=== PATIENT | female | born 1975 | race Caucasian/White ===

== ENCOUNTER 2021-09-21 15:15 | Emergency (ER) | payer OTHER ==
[2021-09-21 15:18] VITALS: TEMP 97.9; BMI 25.4
[2021-09-21] MEDS ORDERED: ACETAMINOPHEN 1000 MG/100 ML BAG IVPB ONE (17:19)
[2021-09-21] MEDS ORDERED: LACTATED RINGERS SOLUTION 1000 ML INFUS.BAG IV ONE (17:20)
[2021-09-21] MEDS ORDERED: ACETAMINOPHEN INJECTION 100 ML IVPB ONE (18:17)
[2021-09-21 19:10] LABS: BASO % 0.4 % (0-2.0); EOS % 1.2 % (0-4.5); HEMATOCRIT 38.8 % (32.4-45.2); HEMOGLOBIN 12.8 GM/dL (10.7-15.3); LYMPH % 31.4 % (8-40); MCH 26.1 pg (25.7-33.7); MEAN CELL VOLUME 79.2 fl (80-96); MEAN PLT VOLUME 10.2 fl (7.5-11.1); MONO % 5.6 % (3.8-10.2); NEUT % 61.4 % (42.8-82.8); PLATELET COUNT 189 10^3/uL (134-434); RDW 14.6 % (11.6-15.6); WHITE BLOOD COUNT 7.4 K/mm3 (4.0-10.0)
[2021-09-21 19:34] LABS: INR 1.06 (0.83-1.09); PROTHROMBIN TIME (PATIENT) 12.2 SEC (9.7-13.0)
[2021-09-21 19:36] LABS: ACTIVATED PTT 28.5 SECONDS (25.2-36.5)
[2021-09-21 19:59] LABS: CHLORIDE 106 mmol/L (98-107); SODIUM 140 mmol/L (136-145)
[2021-09-21 20:03] LABS: ALBUMIN 3.5 g/dl (3.4-5.0); ANION GAP 5 MMOL/L (8-16); BLOOD UREA NITROGEN 8.8 mg/dL (7-18); CALCIUM 9.6 mg/dL (8.5-10.1); CO2 28 mmol/L (21-32); GLUCOSE,RANDOM 79 mg/dL (74-106)
[2021-09-21 20:04] LABS: CREATININE 0.8 mg/dL (0.55-1.3); SGPT/ALT 31 U/L (13-61)
[2021-09-21 20:05] LABS: SGOT/AST 21 U/L (15-37)
[2021-09-21 20:07] LABS: ALK PHOS 70 U/L (45-117); BILIRUBIN,TOTAL 0.4 mg/dL (0.2-1); TOT PROT 7.5 g/dl (6.4-8.2)
[2021-09-21 20:25] LABS: MAGNESIUM 1.9 mg/dL (1.8-2.4)
[2021-09-21 23:11] VITALS: BP 108/70; PULSE 88
== END 2021-09-21 23:11 | disposition home or self-care (01) ==
LOC: JER 15:15
PROC: 3E033NZ Introduction of Analgesics, Hypnotics, Sedatives into Peripheral Vein, Percutaneous Approach (ICD-10-PCS; principal; 2021-09-21)
DX: R07.9 Chest pain, unspecified (principal)
CPT/HCPCS: 36415; 71045-TC-FY; 71275-TC; 80053; 83735; 84443; 84484; 84703; 85025; 85379; 85610; 85730; 93005; 93010; 99285-25; J0131; Q9967

== ENCOUNTER 2022-11-28 05:25 | Day surgery (SDC) | payer OTHER ==
[2022-11-24 08:42] VITALS: BMI 25.0
[2022-11-28 10:08] VITALS: TEMP 97.2
[2022-11-28 10:09] VITALS: RESP 17
[2022-11-28 11:29] VITALS: BP 117/81; PULSE 65
== END 2022-11-28 10:30 | disposition home or self-care (01) ==
LOC: JASU-ENDO 05:25
PROVIDERS: ATTEND Internal Medicine Gastroenterology
PROC: 0DB78ZX Excision of Stomach, Pylorus, Via Natural or Artificial Opening Endoscopic, Diagnostic (ICD-10-PCS; 2022-11-28)
PROC: 0DB68ZX Excision of Stomach, Via Natural or Artificial Opening Endoscopic, Diagnostic (ICD-10-PCS; 2022-11-28)
PROC: 0DB48ZX Excision of Esophagogastric Junction, Via Natural or Artificial Opening Endoscopic, Diagnostic (ICD-10-PCS; principal; 2022-11-28 11:45)
DX: K21.00 Gastro-esophageal reflux disease with esophagitis, without bleeding (principal); K29.50 Unspecified chronic gastritis without bleeding
CPT/HCPCS: 81025; 88305-TC; 88342-TC

== ENCOUNTER → 2025-04-13 | Day surgery (SDC) | payer OTHER | END | disposition home or self-care (01) | LOC: FMAMMOTONE 08:00 | PROVIDERS: ATTEND Nurse Practitioner | PROC: 0H9U3ZX Drainage of Left Breast, Percutaneous Approach, Diagnostic (ICD-10-PCS; principal; 2025-04-13) | DX: D24.2 Benign neoplasm of left breast (principal) | CPT/HCPCS: 19081; 76098-TC-FY; 87899; 88305-TC; A4648 ==